=== PATIENT | female | born 1950 | race American Indian/Alaskan Native ===

== ENCOUNTER 2016-12-15 10:33 | Outpatient (CLI) | payer MEDICARE, OTHER ==
--- NOTE | 2016-12-15 13:09 | Mammography Report ---
Bilateral digital screening mammogram with CAD. The patient's prior mammogram was greater than 10 years ago and is unavailable. Findings: There is scattered fibroglandular densities. In the upper outer quadrant of the left breast, is an ill-defined round parenchymal asymmetry measuring just under 1 cm in diameter. There is no architectural distortion. Round benign calcifications are noted but no suspicious like ossifications are seen. Impression: Left parenchymal asymmetry. BI-RADS code:. Recommendation: Spot compression images and ultrasound if needed.
== END 2016-12-15 10:34 | disposition home or self-care (01) ==
LOC: SPVWC 10:33
PROVIDERS: ATTEND Internal Medicine
DX: Z12.31 Encounter for screening mammogram for malignant neoplasm of breast (principal)
CPT/HCPCS: 77067; G0202

== ENCOUNTER 2017-01-05 10:05 | Outpatient (CLI) | payer MEDICARE, OTHER ==
--- NOTE | 2017-01-05 11:18 | Mammography Report ---
LEFT DIGITAL DIAGNOSTIC MAMMOGRAM and LEFT BREAST ULTRASOUND: Is CLINICAL: Recalled for asymmetry. COMPARISON:12/15/16 screening FINDINGS: ML and spot compression MLO and CC views were performed and demonstrate persistent upper outer periareolar asymmetry. Ultrasound of the left breast demonstrated a benign cyst at 12 o'clock 2 cm from the nipple. It measures 7 x 6 x 7 mm and correlates with the mammographic asymmetry. No solid mass or shadowing. IMPRESSION: Benign cyst. BI-RADS CATEGORY: 2 - - Benign RECOMMENDATION: Routine mammographic screening in one year. ACR BI-RADS MAMMOGRAPHIC CODES: 0 = Needs additional imaging evaluation; 1 = Negative; 2 = Benign; 3 = Probably benign; 4 = Suspicious; 5 = Malignant; 6 = Known biopsy-proven malignancy COMMENT: 1. Dense breast tissue, i.e., adenosis, fibrocystic changes, etc., may obscure an underlying neoplasm. 2. Approximately 10% of cancers are not detected with mammography. 3. A negative mammography report should not delay biopsy if a clinically suspicious mass is present. COMMENT: Patient follow-up letters are generated via our [employer] application.
== END 2017-01-05 10:06 | disposition home or self-care (01) ==
LOC: SPVWC 10:05
PROVIDERS: ATTEND Internal Medicine
DX: N64.89 Other specified disorders of breast (principal)
CPT/HCPCS: 76642; G0206